=== PATIENT | male | born 1990 | race Caucasian/White ===

== ENCOUNTER 2016-10-29 05:54 | Emergency (ER) | payer OTHER ==
[~2016-10-29] VITALS: Ht 188 cm; Wt 65.8 kg
[~2016-10-29 05:54] MED LIST: ALPR0.5T6 PO; ASPI-612 PO
--- NOTE | 2016-10-29 06:19 | ED.ADGEN ---
Past History Past Medical History: Other Past Surgical History: Other Alcohol Use: None Drug Use: Marijuana Adult General Chief Complaint Chief Complaint Chest tightness, shortness of breath, anxiety [facility] HPI Patient is a 26 year old male with history of anxiety, cardiac arrhythmia requiring AICD basement presents who presents with chest tightness, mild dyspnea , anxiety and worry for the past 24 hours. Patient states he's concerned that his AICD discharge, but he denies feeling any sudden chest pain or electrical discharges. Symptoms are non-exertional and are worse at night. He has not had palpitations or syncope. Patient states he has had similar episodes in the past and has been treated with anxiety, but is currently off anxiety medication that is been treating himself with marijuana. He has an AICD implanted at [facility] in July 2016, which was confirmed to be properly functioning earlier this month. He is scheduled for a cardiac biopsy in the next 3 weeks. He currently on a beta zach for which he has poor for tolerance. She denies any other symptoms or complaints. Review of Systems Review of Systems ROS as per HPI Current Medications Current Medications Current Medications Medications (Trade) Dose Ordered Sig/Rick Start Time Stop Time Status Last Admin Dose Admin Lorazepam (Ativan) 0.5 mg 1X ONCE 10/29/16 06:30 10/29/16 06:32 DC 10/29/16 06:45 0.5 MG Allergies Allergies Allergies Coded Allergies Type Severity Reaction Last Updated Verified No Known Drug Allergies 04/07/16 No Physical Exam Physical Exam Constitutional: Well developed, well nourished, no acute distress, anxious. HEENT: atraumatic, bilateral external ears normal, oropharynx moist, no oral exudates, nose normal. Eyes: PERRLA, EOMI. Neck: Normal range of motion, no tenderness, supple. Cardiovascular:Heart rate regular rhythm, no murmur. Lungs & Thorax: Bilateral breath sounds clear to auscultation. Abdomen: Bowel sounds normal, soft, no tenderness. Skin: Warm, dry. Back: No tenderness. Extremities: No tenderness. Neurologic: Alert and oriented X 3, normal motor function, normal sensory function, no focal deficits noted. Current Patient Data Vital Signs Vital Signs Date Time Temp Pulse Resp B/P (MAP) Pulse Ox O2 Delivery O2 Flow Rate FiO2 10/29/16 06:00 98.0 18 96 Room Air Lab Results Laboratory Tests Test 10/29/16 06:20 White Blood Count 6.6 x10^3/uL (4.0-11.0) Red Blood Count 4.89 x10^6/uL (4.30-5.70) Hemoglobin 14.5 g/dL (13.0-17.5) Hematocrit 41.4 % (39.0-53.0) Mean Corpuscular Volume 85 fL (79-100) Mean Corpuscular Hemoglobin 30 pg (25-35) Mean Corpuscular Hemoglobin Concent 35 g/dL (31-37) Red Cell Distribution Width 13.0 % (11.5-14.5) Platelet Count 181 x10^3/uL (140-400) Neutrophils (%) (Auto) 66 % (31-73) Lymphocytes (%) (Auto) 22 % (24-48) L Monocytes (%) (Auto) 6 % (0-9) Eosinophils (%) (Auto) 5 % (0-3) H Basophils (%) (Auto) 0 % (0-3) Neutrophils # (Auto) 4.4 x10^3uL (1.8-7.7) Lymphocytes # (Auto) 1.5 x10^3/uL (1.0-4.8) Monocytes # (Auto) 0.4 x10^3/uL (0.0-1.1) Eosinophils # (Auto) 0.3 x10^3/uL (0.0-0.7) Basophils # (Auto) 0.0 x10^3/uL (0.0-0.2) Sodium Level 140 mmol/L (136-145) Potassium Level 4.2 mmol/L (3.5-5.1) Chloride Level 106 mmol/L (98-107) Carbon Dioxide Level 27 mmol/L (21-32) Anion Gap 7 (6-14) Blood Urea Nitrogen 10 mg/dL (8-26) Creatinine 0.8 mg/dL (0.7-1.3) Estimated GFR (Cockcroft-Gault) 116.9 BUN/Creatinine Ratio 13 (6-20) Glucose Level 108 mg/dL (70-99) H Calcium Level 9.0 mg/dL (8.5-10.1) Total Bilirubin 0.3 mg/dL (0.2-1.0) Aspartate Amino Transferase (AST) 14 U/L (15-37) L Alanine Aminotransferase (ALT) 17 U/L (16-63) Alkaline Phosphatase 85 U/L (46-116) Total Protein 7.4 g/dL (6.4-8.2) Albumin 3.7 g/dL (3.4-5.0) Albumin/Globulin Ratio 1.0 (1.0-1.7) EKG EKG [EKG: Normal sinus rhythm, abnormal V1 and V2 St contour] Radiology/Procedures Radiology/Procedures [Chest x-ray: No acute cardiopulmonary disease per radiology report] Course & Med Decision Making Course & Med Decision Making Pertinent Labs and Imaging studies reviewed. (See chart for details) [Clinically anxious. Does not report AICD discharge. Basic laboratories, EKG, chest x-ray pain. AICD interrogated. Case reviewed with Gus Rice, professional bass fisherman for patient's operating room rn. Recommend discharge home today and office follow up within 24-48 hours Final Impression Final Impression [1. Chest tightness 2. Dyspnea Problems: Dragon Disclaimer Dragon Disclaimer This electronic medical record was generated, in whole or in part, using a voice recognition dictation system. ROSY SANCHEZ DO October 29, 2016 06:19
[2016-10-29] MEDS ORDERED: LORazepam 2 MG/ML VIAL IV ONE (06:30)
[2016-10-29 06:38] LABS: BASO % 0 % (0-3); EOS # 0.3 x10^3/uL (0.0-0.7); EOS % 5 % (0-3); HEMATOCRIT 41.4 % (39.0-53.0); HEMOGLOBIN 14.5 g/dL (13.0-17.5); LYMPH # 1.5 x10^3/uL (1.0-4.8); LYMPH % 22 % (24-48); MEAN CORPUSCULAR HEMOGLOBIN 30 pg (25-35); MEAN CORPUSCULAR HGB CONC 35 g/dL (31-37); MEAN CORPUSCULAR VOLUME 85 fL (79-100); MONO # 0.4 x10^3/uL (0.0-1.1); MONO % 6 % (0-9); NEUT # 4.4 x10^3uL (1.8-7.7); NEUT % 66 % (31-73); PLATELET COUNT 181 x10^3/uL (140-400); RED BLOOD COUNT 4.89 x10^6/uL (4.30-5.70); WHITE BLOOD COUNT 6.6 x10^3/uL (4.0-11.0)
[2016-10-29 06:49] LABS: ALBUMIN 3.7 g/dL (3.4-5.0); CREATININE 0.8 mg/dL (0.7-1.3); GFR 116.9; POTASSIUM 4.2 mmol/L (3.5-5.1); TOTAL BILIRUBIN 0.3 mg/dL (0.2-1.0); TOTAL PROTEIN 7.4 g/dL (6.4-8.2)
--- NOTE | 2016-10-29 07:15 | RAD ---
AP chest, 10/29/2016: History: Chest pain Comparison is made to a study from 04/07/2016. A right-sided transvenous pacing device has been placed in the interval with a single lead extending into the region of the right ventricle. The heart size and pulmonary vascularity are normal. No pulmonary infiltrates are seen. There is no evidence of pleural fluid IMPRESSION: No acute cardiopulmonary abnormality is detected.
[2016-10-29 09:29] VITALS: BP 117/77
--- NOTE | 2016-10-29 12:49 | EKG ---
[address] [address] Test Date: 2016-10-29 Test Time: 06:03:18 Pat Name: JAMIA GUTIERREZ Department: Room: Gender: M Comfort Filler: : 1990 Requested By: ROSY SANCHEZ Order Number: [id number] Reading MD: Berhane Abraham Measurements Intervals Bly Rate: 62 P: 8 RI: 186 QRS: 66 QRSD: 84 T: 52 QT: 384 QTc: 392 Interpretive Statements SINUS RHYTHM Electronically Signed On 11-03-2016 13:58:16 CDT by Berhane Abraham
== END 2016-10-29 09:48 | disposition home or self-care (01) ==
LOC: ER 05:54
DX: R07.89 Other chest pain (principal); R06.00 Dyspnea, unspecified; F12.10 Cannabis abuse, uncomplicated; Z95.810 Presence of automatic (implantable) cardiac defibrillator
CPT/HCPCS: 36415; 71010; 80053; 84484; 85027; 93005; 96374; 99285; J2060

== ENCOUNTER 2016-11-12 20:09 | Emergency (ER) | payer OTHER ==
[~2016-11-12] VITALS: Ht 188 cm; Wt 69.0 kg
[2016-11-12] MEDS ORDERED: LIDOCAINE/EPI/TETRACAINE TOPICAL GEL 3 ML. TP ONE ×2 (20:17→20:30)
[2016-11-12] MEDS ORDERED: IBUPROFEN 600 MG TABLET. PO ONE ×2 (20:29→20:45)
[2016-11-12] MEDS ORDERED: ACETAMINOPHEN 500 MG TABLET PO ONE (20:30)
[2016-11-12] MEDS ORDERED: ONDANSETRON ODT 4 MG TAB.RAPDIS PO ONE (20:30)
--- NOTE | 2016-11-12 20:32 | ED.ADGEN ---
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 Patient states that he was chasing his dog at home, when he ran into the low hanging ceiling under his stairs. He states this occurred about 30 minutes prior to arrival. No loss of consciousness, he states he is experiencing a headache and mild nausea at this time. Denies any vision changes , any weakness, numbness, tingling, vomiting, chest pain, shortness of breath or other injuries. Patient place pressure on the scalp immediately, and is currently hemostatic. Patient takes a daily aspirin, no other anticoagulants. Review of Systems Review of Systems Constitutional: Denies fever or chills [] Eyes: Denies change in visual acuity, redness, or eye pain [] HENT: Denies nasal congestion or sore throat [] Respiratory: Denies cough or shortness of breath [] Cardiovascular: No additional information not addressed in HPI [] GI: Denies abdominal pain, nausea, vomiting, bloody stools or diarrhea [] : Denies dysuria or hematuria [] Musculoskeletal: Denies back pain or joint pain [] Integument: Denies rash or skin lesions [] Neurologic: Denies focal weakness or sensory changes. Complaining of headache and pain at site of injury. Endocrine: Denies polyuria or polydipsia [] Current Medications Current Medications Current Medications Medications (Trade) Dose Ordered Sig/[facility] Start Time Stop Time Status Last Admin Dose Admin Acetaminophen (Tylenol) 1,000 mg 1X ONCE 11/12/16 20:30 11/12/16 20:30 DC Ibuprofen (Motrin) 600 mg STK-MED ONCE 11/12/16 20:29 11/12/16 20:30 DC Lidocaine/ Epinephrine (Let Topical) 3 ml 1X ONCE 11/12/16 20:30 11/12/16 20:31 DC 11/12/16 20:28 3 ML Ondansetron HCl (Zofran Odt) 4 mg 1X ONCE 11/12/16 20:30 11/12/16 20:31 DC 11/12/16 20:28 4 MG Allergies Allergies Allergies Coded Allergies Type Severity Reaction Last Updated Verified No Known Drug Allergies 04/07/16 No Physical Exam Physical Exam Constitutional: Well developed, well nourished, no acute distress, non-toxic appearance. [] HENT: Normocephalic, patient with a 2 and half centimeter laceration, currently adhesed in place with dried blood, no hemotympanum, no septal hematoma, bilateral external ears normal, oropharynx moist, no oral exudates, nose normal. [] Eyes: PERRLA, EOMI, conjunctiva normal, no discharge. [] Neck: Normal range of motion, no tenderness, supple, no stridor. [] Cardiovascular:Heart rate regular rhythm, no murmur, S1, S2, rubs or gallops. [] Lungs & Thorax: Bilateral breath sounds clear to auscultation, no wheezing, rhonchi, rales. No chest or crepitus or tenderness. [] Abdomen: Bowel sounds normal, soft, no tenderness, no masses, no pulsatile masses. [] Skin: Warm, dry, no erythema, no rash. [] Back: No tenderness, no CVA tenderness. [] Extremities: No tenderness, no cyanosis, no clubbing, ROM intact, no edema. [] Neurologic: Alert and oriented X 3, normal motor function, normal sensory function, no focal deficits noted. No nystagmus, normal neurologic examination. [] Psychologic: Affect normal, judgement normal, mood normal. [] Current Patient Data Vital Signs Vital Signs Date Time Temp Pulse Resp B/P (MAP) Pulse Ox O2 Delivery O2 Flow Rate FiO2 11/12/16 20:40 70 16 115/82 (93) 99 Room Air 11/12/16 20:10 98.3 EKG EKG Not indicated. [] Radiology/Procedures Radiology/Procedures Not indicated. [] Course & Med Decision Making Course & Med Decision Making Pertinent Labs and Imaging studies reviewed. (See chart for details) Patient is a 2 and half centimeters slightly gaping linear laceration in the right scalp above the forehead, within the hairline. Area is hemostatic after pressure, copiously irrigated as stated, after let gel was applied, 2 alvin placed with good approximation and closure. Patient tolerated procedure well as stated. Antibiotic ointment was applied to the area. Patient received ibuprofen and Zofran in the ED, is complaining of mild nausea and headache. Neurologic examination was normal as stated, patient does take a daily aspirin. No indications for imaging at this time or additional evaluation based on patient' s examination and our conversation. We did discuss concerning symptoms that prompt return to the emergency department with patient and at bedside, patient states that he would like to go to work today, states he feels well enough, he performs skilled nursing duties, and a work note was given explaining his injury. Instructed to follow-up in 8-10 days for staple removal, and to return any time if any concerning symptoms develop. Patient and voiced understanding and agreement with this plan. Patient discharged home in stable condition with instructions, precautions, and plan as above. Final Impression Final Impression [] Problems: Dragon Disclaimer Dragon Disclaimer This electronic medical record was generated, in whole or in part, using a voice recognition dictation system. Laceration Repair Lac Repair Indication: 2 and half centimeter linear superficial slightly gaping laceration to the right scalp Procedure: The patient was placed in the appropriate position and anesthesia around the right scalp laceration was applied with LET gel. The area was then copiously irrigated with sterile saline under pressure. The laceration was approximated and closed using 2 alvin. Area was hemostatic. No underlying hematoma. The wound area was then dressed with antibiotic ointment and left open to air. Total repaired wound length: [2 and half centimeters Other Items: [None The patient tolerated the procedure [well. Complications: None. Departure: Impression: Primary Impression: Scalp laceration Additional Impression: Closed head injury Disposition: HOME, SELF-CARE Condition: IMPROVED ARLETTE MENDIOLA DO November 12, 2016 20:32
[2016-11-12 20:40] VITALS: BP 115/82
== END 2016-11-12 21:17 | disposition home or self-care (01) ==
LOC: ER 20:09
DX: S01.01XA Laceration without foreign body of scalp, initial encounter (principal); S09.8XXA Other specified injuries of head, initial encounter; F12.10 Cannabis abuse, uncomplicated; Z95.0 Presence of cardiac pacemaker; W22.8XXA Striking against or struck by other objects, initial encounter; Y93.02 Activity, running; Y99.8 Other external cause status; Y92.89 Other specified places as the place of occurrence of the external cause
CPT/HCPCS: 12001; 99283; Q0162

== ENCOUNTER 2016-11-24 15:40 | Emergency (ER) | payer OTHER ==
[2016-11-24 15:40] VITALS: BP 115/71
--- NOTE | 2016-11-24 16:10 | ED.ADGEN ---
Past History Past Medical History: Other Past Surgical History: Pacemaker Alcohol Use: Occasionally Drug Use: Marijuana Adult General Chief Complaint Chief Complaint Staple removal HPI HPI Patient is a 26-year-old male presents for removal on 11/12. No complications. Review of Systems Review of Systems ROS are negative Allergies Allergies Allergies Coded Allergies Type Severity Reaction Last Updated Verified No Known Drug Allergies 04/07/16 No Physical Exam Physical Exam Constitutional: Well developed, well nourished, no acute distress, non-toxic appearance. HENT: Normocephalic, atraumatic, scalp wound, alvin intact, no infection or swelling, bilateral external ears normal, oropharynx moist, no oral exudates, nose normal. Current Patient Data Vital Signs Vital Signs Date Time Temp Pulse Resp B/P (MAP) Pulse Ox O2 Delivery O2 Flow Rate FiO2 11/24/16 15:40 97.9 73 20 98 Room Air EKG EKG [] Radiology/Procedures Radiology/Procedures [] Course & Med Decision Making Course & Med Decision Making Pertinent Labs and Imaging studies reviewed. (See chart for details) Alvin removed] Final Impression Final Impression [1. Encounter for staple removal] Problems: Dragon Disclaimer Dragon Disclaimer This electronic medical record was generated, in whole or in part, using a voice recognition dictation system. ROSY SANCHEZ DO Nov 24, 2016 16:10
== END 2016-11-24 15:55 | disposition home or self-care (01) ==
LOC: ER 15:40
DX: S01.01XD Laceration without foreign body of scalp, subsequent encounter (principal); F12.10 Cannabis abuse, uncomplicated; X58.XXXD Exposure to other specified factors, subsequent encounter; Y99.8 Other external cause status; Y92.89 Other specified places as the place of occurrence of the external cause
CPT/HCPCS: 99281

== ENCOUNTER 2017-06-09 12:17 | Emergency (ER) | payer OTHER ==
[2017-06-09 12:42] LABS: BASO % 0 % (0-3); EOS % 0 % (0-3); HEMATOCRIT 48.5 % (39.0-53.0); HEMOGLOBIN 16.8 g/dL (13.0-17.5); LYMPH # 0.6 x10^3/uL (1.0-4.8); LYMPH % 4 % (24-48); MEAN CORPUSCULAR HEMOGLOBIN 29 pg (25-35); MEAN CORPUSCULAR HGB CONC 35 g/dL (31-37); MEAN CORPUSCULAR VOLUME 84 fL (79-100); MONO # 0.5 x10^3/uL (0.0-1.1); MONO % 3 % (0-9); NEUT # 13.9 x10^3uL (1.8-7.7); NEUT % 92 % (31-73); PLATELET COUNT 186 x10^3/uL (140-400); RED BLOOD COUNT 5.79 x10^6/uL (4.30-5.70); RED CELL DISTRIBUTION WIDTH 12.3 % (11.5-14.5); WHITE BLOOD COUNT 15.1 x10^3/uL (4.0-11.0)
[2017-06-09] MEDS ORDERED: IV NORMAL SALINE 1,000ML 1,000 ML IV ONE (12:45)
[2017-06-09] MEDS ORDERED: ONDANSETRON PF 4 MG/2 ML VIAL. IV ONE (12:45)
[2017-06-09] MEDS ORDERED: FAMOTIDINE 20 MG/2 ML VIAL IVP ONE (12:45)
[2017-06-09 12:59] LABS: ALBUMIN/GLOBULIN RATIO 1.4 (1.0-1.7); CALCIUM 9.8 mg/dL (8.5-10.1); GFR 89.6; POTASSIUM 4.6 mmol/L (3.5-5.1); TOTAL BILIRUBIN 0.5 mg/dL (0.2-1.0); TOTAL PROTEIN 8.6 g/dL (6.4-8.2)
[2017-06-09 13:45] LABS: % BANDS 2 % (0-9); % LYMPHS 10 % (24-48); % MONOS 4 % (0-10); % SEGS 84 % (35-66); PLATELET CLUMP PRESENT; PLT ESTIMATE ADEQUATE (ADEQUATE)
[2017-06-09 14:25] VITALS: BP 117/58
--- NOTE | 2017-06-09 17:58 | ED.ADGEN ---
Past History Past Medical History: Other Past Surgical History: Pacemaker Alcohol Use: Occasionally Drug Use: Marijuana Adult General Chief Complaint Chief Complaint Nausea and vomiting HPI HPI Patient is a [age] [id number] male with history of cardiomyopathy and malignant arrhythmia with AICD placement who presents with nausea and vomiting multiple episodes starting yesterday. Patient states he is exposed to GI illness with his daughter vomited on him 2 days ago. Reports mild epigastric pain, no blood in stool or vomit. No diarrhea or constipation. Patient has fever chills, sweats, flank pain,, urinary frequency and urgency other acute symptoms or complaints.[] Review of Systems Review of Systems Review symptoms as per history of present illness. All other review symptoms are negative.] All other systems were reviewed and found to be within normal limits, except as documented in this note. Current Medications Current Medications Current Medications Medications (Trade) Dose Ordered Sig/[facility] Start Time Stop Time Status Last Admin Dose Admin Famotidine (Pepcid Vial) 20 mg 1X ONCE 06/09/17 12:45 06/09/17 12:46 DC 06/09/17 12:48 20 MG Ondansetron HCl (Zofran) 8 mg 1X ONCE 06/09/17 12:45 06/09/17 12:46 DC 06/09/17 12:46 8 MG Sodium Chloride 1,000 ml @ 1,000 mls/hr 1X ONCE 06/09/17 12:45 06/09/17 13:44 DC 06/09/17 12:45 1,000 MLS/HR Allergies Allergies Allergies Coded Allergies Type Severity Reaction Last Updated Verified No Known Drug Allergies 04/07/16 No Physical Exam Physical Exam Constitutional: Well developed, well nourished, no acute distress, non-toxic appearance. [] HENT: Normocephalic, atraumatic, bilateral external ears normal, oropharynx moist, no oral exudates, nose normal. [] Eyes: PERRLA, EOMI, conjunctiva normal, no discharge. [] Neck: Normal range of motion, no tenderness, supple, no stridor. [] Cardiovascular:Heart rate regular rhythm, no murmur [] Lungs & Thorax: Bilateral breath sounds clear to auscultation [] Abdomen: Bowel sounds normal, soft, no tenderness, no masses, no pulsatile masses. [] Skin: Warm, dry, no erythema, no rash. [] Back: No tenderness, no CVA tenderness. [] Extremities: No tenderness, no cyanosis, no clubbing, ROM intact, no edema. [] Neurologic: Alert and oriented X 3, normal motor function, normal sensory function, no focal deficits noted. [] Psychologic: Affect normal, judgement normal, mood normal. [] Current Patient Data Lab Results Laboratory Tests Test 06/09/17 12:34 White Blood Count 15.1 x10^3/uL (4.0-11.0) H Red Blood Count 5.79 x10^6/uL (4.30-5.70) H Hemoglobin 16.8 g/dL (13.0-17.5) Hematocrit 48.5 % (39.0-53.0) Mean Corpuscular Volume 84 fL (79-100) Mean Corpuscular Hemoglobin 29 pg (25-35) Mean Corpuscular Hemoglobin Concent 35 g/dL (31-37) Red Cell Distribution Width 12.3 % (11.5-14.5) Platelet Count 186 x10^3/uL (140-400) Neutrophils (%) (Auto) 92 % (31-73) H Lymphocytes (%) (Auto) 4 % (24-48) L Monocytes (%) (Auto) 3 % (0-9) Eosinophils (%) (Auto) 0 % (0-3) Basophils (%) (Auto) 0 % (0-3) Neutrophils # (Auto) 13.9 x10^3uL (1.8-7.7) H Lymphocytes # (Auto) 0.6 x10^3/uL (1.0-4.8) L Monocytes # (Auto) 0.5 x10^3/uL (0.0-1.1) Eosinophils # (Auto) 0.0 x10^3/uL (0.0-0.7) Basophils # (Auto) 0.0 x10^3/uL (0.0-0.2) Segmented Neutrophils % 84 % (35-66) H Band Neutrophils % 2 % (0-9) Lymphocytes % 10 % (24-48) L Monocytes % 4 % (0-10) Platelet Estimate Adequate (ADEQUATE) Platelet Clumps, EDTA Present Sodium Level 140 mmol/L (136-145) Potassium Level 4.6 mmol/L (3.5-5.1) Chloride Level 104 mmol/L (98-107) Carbon Dioxide Level 27 mmol/L (21-32) Anion Gap 9 (6-14) Blood Urea Nitrogen 15 mg/dL (8-26) Creatinine 1.0 mg/dL (0.7-1.3) Estimated GFR (Cockcroft-Gault) 89.6 BUN/Creatinine Ratio 15 (6-20) Glucose Level 136 mg/dL (70-99) H Calcium Level 9.8 mg/dL (8.5-10.1) Total Bilirubin 0.5 mg/dL (0.2-1.0) Aspartate Amino Transferase (AST) 16 U/L (15-37) Alanine Aminotransferase (ALT) 23 U/L (16-63) Alkaline Phosphatase 77 U/L (46-116) Total Protein 8.6 g/dL (6.4-8.2) H Albumin 5.0 g/dL (3.4-5.0) Albumin/Globulin Ratio 1.4 (1.0-1.7) EKG EKG [] Radiology/Procedures Radiology/Procedures [] Course & Med Decision Making Course & Med Decision Making Pertinent Labs and Imaging studies reviewed. (See chart for details) [1 episode of vomiting prior on ED arrival. Symptoms significantly improved with treatment. Abdomen remained soft, nonsurgical. Patient's elevation white blood cell count is consistent with [place] GI illness prevalent in the community. Wi'll treat supportively, with supportively with watchful waiting and close PCP follow-up. Return precautions reviewed. Patient verbalizes understanding agreement with discharge instructions prior to departure.] Final Impression Final Impression [#1 nausea and vomiting #2 abdominal pain] Problems: Dragon Disclaimer Dragon Disclaimer This electronic medical record was generated, in whole or in part, using a voice recognition dictation system. ROSY SACNHEZ DO Jun 09, 2017 17:58
== END 2017-06-09 14:40 | disposition home or self-care (01) ==
LOC: ER 12:17
DX: R11.2 Nausea with vomiting, unspecified (principal); R10.13 Epigastric pain; F12.10 Cannabis abuse, uncomplicated; I42.9 Cardiomyopathy, unspecified; Z95.0 Presence of cardiac pacemaker
CPT/HCPCS: 36415; 80053; 85025; 96361; 96374; 96375; 99284; J2405; S0028; 85007; J7030

== ENCOUNTER 2017-10-28 12:16 | Emergency (ER) | payer OTHER ==
[~2017-10-28] VITALS: Ht 188 cm; Wt 69.0 kg
[2017-10-28 12:34] VITALS: BP 117/73
[2017-10-28 13:15] LABS: BASO % 1 % (0-3); EOS # 0.1 x10^3/uL (0.0-0.7); EOS % 2 % (0-3); HEMATOCRIT 40.2 % (39.0-53.0); HEMOGLOBIN 14.3 g/dL (13.0-17.5); LYMPH # 2.4 x10^3/uL (1.0-4.8); LYMPH % 35 % (24-48); MEAN CORPUSCULAR HEMOGLOBIN 31 pg (25-35); MEAN CORPUSCULAR HGB CONC 36 g/dL (31-37); MEAN CORPUSCULAR VOLUME 86 fL (79-100); MONO # 0.4 x10^3/uL (0.0-1.1); MONO % 6 % (0-9); NEUT # 3.8 x10^3uL (1.8-7.7); NEUT % 57 % (31-73); PLATELET COUNT 201 x10^3/uL (140-400); RED BLOOD COUNT 4.68 x10^6/uL (4.30-5.70); RED CELL DISTRIBUTION WIDTH 13.4 % (11.5-14.5); WHITE BLOOD COUNT 6.7 x10^3/uL (4.0-11.0)
[2017-10-28 13:26] LABS: ALBUMIN 4.1 g/dL (3.4-5.0); ALBUMIN/GLOBULIN RATIO 1.4 (1.0-1.7); CALCIUM 9.4 mg/dL (8.5-10.1); CREATININE 0.9 mg/dL (0.7-1.3); GFR 101.2; POTASSIUM 3.9 mmol/L (3.5-5.1); TOTAL BILIRUBIN 0.4 mg/dL (0.2-1.0)
[2017-10-28 13:39] LABS: BACTERIA,URINE FEW /HPF (0-FEW); BILIRUBIN,URINE NEG (NEG); CLARITY,URINE CLOUDY; COLOR,URINE YELLOW; GLUCOSE,URINE NEG (NEG); NITRITE,URINE NEG (NEG); SQUAMOUS EPITHELIAL CELL,UR OCC /LPF; UROBILINOGEN,URINE 0.2 mg/dL (0.2 mg/dL)
[2017-10-28 13:40] LABS: AMORPHOUS SEDIMENT,UR PRESENT /HPF; HYALINE CASTS, URINE OCC /HPF
[2017-10-28] MEDS ORDERED: HYDROcodone/APAP 5/325MG 1 TAB TABLET PO ONE (14:15)
--- NOTE | 2017-10-28 14:22 | RAD ---
CT ABDOMEN PELVIS WO CONTRAST Indication: BILATERAL FLANK/KIDNEY PAIN ONSET YESTERDAY Exposure: One or more of the following individualized dose reduction techniques were utilized for this examination: 1. Automated exposure control 2. Adjustment of the mA and/or kV according to patient size 3. Use of iterative reconstruction technique. Comparison: None are available. Contrast: None Urinary tracts: No evidence of urinary tract calculus. No evidence of hydronephrosis or ureteric dilatation. Evaluation of solid viscera, bowel and vasculature is compromised by the noncontrast technique. Lower thorax: Lung bases are clear. Pneumoperitoneum:No gross pneumoperitoneum. Liver: Unremarkable Spleen: Unremarkable Pancreas: Unremarkable Kidneys:Unremarkable Adrenals:No evidence of mass. Gallbladder: No calcified stone Aorta: Abdominal aorta is nonaneurysmal Lymph nodes: No significant enlargement GI tract: No bowel obstruction. No evidence of acute colitis. The appendix is normal. Ascites: No gross ascites. Urinary bladder: Not opacified, but no apparent abnormality. No evidence of pelvic mass. Bones: No destructive process. IMPRESSION: No acute findings. No urinary tract calculus or obstruction. Electronically signed by: Sin Taylor MD (10/28/2017 2:19 PM) [facility]
--- NOTE | 2017-10-28 14:30 | PHYS DOC ---
Past History Past Medical History: No Pertinent History Past Surgical History: No Surgical History Alcohol Use: None Drug Use: Marijuana Adult General Chief Complaint Chief Complaint: URINARY RETENTION HPI HPI This is a pleasant 27-year-old male with a past medical history of sarcoidosis and myocarditis who presents the emergency department with urinary retention after beginning Remicade therapy. He reports straining to be at night. He denies any fevers at home or chills. He denies pain on urination. He reports his urine color is within normal limits at denies any clots of blood in his urine. He has bilateral flank pain as well. His pain in his flank is sharp shooting mild to moderate intermittent and without alleviating factors. Review of systems is negative for chest pain shortness of breath fevers or chills. All other review of systems is negative unless otherwise noted in history of present illness. ED course: 77-year-old male presenting to the emergency department today with bilateral flank pain. On arrival the patient is afebrile with a normal blood pressure. Heart rate was within normal limits. Examination the patient is well- appearing and nontoxic. He has mild left and right CVA tenderness without any abdominal pain on palpation. No tenderness palpation of the abdomen. No rebound tenderness or guarding. Negative McBurney's point. Negative Catalan sign. Urinalysis obtained which shows trace blood negative nitrites negative leuk esterase. Not suggestive of urinary tract infection. Chemistry panel unremarkable. Postvoid residual shows [address] abdomen pelvis is unremarkable for acute pathology. We will refer the patient back to his primary care physician for follow-up in the next few days.The patient has been examined and was not found to have an emergency medical condition. The patient was then discharged home in stable condition to follow up with their primary care physician over the next 2-3 days. They were to return if their symptoms worsened or if they were concerned for any reason. [id number] discharge instructions and return precautions were given. Patient's questions were answered to their satisfaction. Patient is comfortable with plan. Review of Systems Review of Systems SEE ABOVE. Current Medications Current Medications Current Medications Medications (Trade) Dose Ordered Sig/Rick Start Time Stop Time Status Last Admin Dose Admin Acetaminophen/ Hydrocodone Bitart (Lortab 5/325) 2 tab 1X ONCE 10/28/17 14:15 10/28/17 14:16 DC 10/28/17 14:03 2 TAB Allergies Allergies Allergies Coded Allergies Type Severity Reaction Last Updated Verified No Known Drug Allergies 04/07/16 No Physical Exam Physical Exam SEE ABOVE Constitutional: Well developed, well nourished, no acute distress, non-toxic appearance. [] HENT: Normocephalic, atraumatic, bilateral external ears normal, oropharynx moist, no oral exudates, nose normal. [] Eyes: PERRLA, EOMI, conjunctiva normal, no discharge. [] Neck: Normal range of motion, no tenderness, supple, no stridor. [] Cardiovascular:Heart rate regular rhythm, no murmur [] Lungs & Thorax: Bilateral breath sounds clear to auscultation [] Abdomen: Bowel sounds normal, soft, no tenderness, no masses, no pulsatile masses. [] Skin: Warm, dry, no erythema, no rash. [] Back: No tenderness, mild bilateral cva tenderness. Extremities: No tenderness, no cyanosis, no clubbing, ROM intact, no edema. [] Neurologic: Alert and oriented X 3, normal motor function, normal sensory function, no focal deficits noted. [] Psychologic: Affect normal, judgement normal, mood normal. [] Current Patient Data Vital Signs Vital Signs Date Time Temp Pulse Resp B/P (MAP) Pulse Ox O2 Delivery O2 Flow Rate FiO2 10/28/17 14:03 16 99 Room Air 10/28/17 12:34 97.5 80 Lab Results Laboratory Tests Test 10/28/17 12:53 10/28/17 13:05 White Blood Count 6.7 x10^3/uL (4.0-11.0) Red Blood Count 4.68 x10^6/uL (4.30-5.70) Hemoglobin 14.3 g/dL (13.0-17.5) Hematocrit 40.2 % (39.0-53.0) Mean Corpuscular Volume 86 fL (79-100) Mean Corpuscular Hemoglobin 31 pg (25-35) Mean Corpuscular Hemoglobin Concent 36 g/dL (31-37) Red Cell Distribution Width 13.4 % (11.5-14.5) Platelet Count 201 x10^3/uL (140-400) Neutrophils (%) (Auto) 57 % (31-73) Lymphocytes (%) (Auto) 35 % (24-48) Monocytes (%) (Auto) 6 % (0-9) Eosinophils (%) (Auto) 2 % (0-3) Basophils (%) (Auto) 1 % (0-3) Neutrophils # (Auto) 3.8 x10^3uL (1.8-7.7) Lymphocytes # (Auto) 2.4 x10^3/uL (1.0-4.8) Monocytes # (Auto) 0.4 x10^3/uL (0.0-1.1) Eosinophils # (Auto) 0.1 x10^3/uL (0.0-0.7) Basophils # (Auto) 0.0 x10^3/uL (0.0-0.2) Sodium Level 142 mmol/L (136-145) Potassium Level 3.9 mmol/L (3.5-5.1) Chloride Level 104 mmol/L (98-107) Carbon Dioxide Level 28 mmol/L (21-32) Anion Gap 10 (6-14) Blood Urea Nitrogen 14 mg/dL (8-26) Creatinine 0.9 mg/dL (0.7-1.3) Estimated GFR (Cockcroft-Gault) 101.2 BUN/Creatinine Ratio 16 (6-20) Glucose Level 106 mg/dL (70-99) H Calcium Level 9.4 mg/dL (8.5-10.1) Total Bilirubin 0.4 mg/dL (0.2-1.0) Aspartate Amino Transferase (AST) 16 U/L (15-37) Alanine Aminotransferase (ALT) 23 U/L (16-63) Alkaline Phosphatase 51 U/L (46-116) Total Protein 7.0 g/dL (6.4-8.2) Albumin 4.1 g/dL (3.4-5.0) Albumin/Globulin Ratio 1.4 (1.0-1.7) Urine Collection Type Unknown Urine Color Yellow Urine Clarity Cloudy Urine pH 7.0 Urine Specific [place] 1.025 Urine Protein Neg (NEG-TRACE) Urine Glucose (UA) Neg mg/dL (NEG) Urine Ketones (Stick) Neg mg/dL (NEG) Urine Blood Trace (NEG) Urine Nitrite Neg (NEG) Urine Bilirubin Neg (NEG) Urine Urobilinogen Dipstick 0.2 mg/dL (0.2 mg/dL) Urine Leukocyte Esterase Neg (NEG) Urine RBC 6-10 /HPF (0-2) Urine WBC 1-4 /HPF (0-4) Urine Squamous Epithelial Cells Occ /LPF Urine Amorphous Sediment Present /HPF Urine Bacteria Few /HPF (0-FEW) Urine Hyaline Casts Occ /HPF Urine Mucus Slight /LPF EKG EKG [] Radiology/Procedures Radiology/Procedures [] Course & Med Decision Making Course & Med Decision Making Pertinent Labs and Imaging studies reviewed. (See chart for details) [] Dragon Disclaimer Dragon Disclaimer This electronic medical record was generated, in whole or in part, using a voice recognition dictation system. Departure Departure: Impression: Primary Impression: Flank pain Additional Impression: Flank pain, acute Disposition: HOME, SELF-CARE Condition: STABLE Referrals: PCP,KILEY (PCP) LISETH GALINDO MD Patient Instructions: Flank Pain Additional Instructions: Thank you for allowing us to participate in your care today. Followup with your primary care physician in 3 days if your symptoms do not improve. Call your Primary Doctor tomorrow and inform them of your visit today. If you do not have a primary care provider you can ask for a list of our primary care providers. Return to the emergency department you have any new or concerning findings. This should be evaluated by the primary care physician and any necessary consulting services for continued management within a few days after discharge. Return to emergency room if you have any new or concerning symptoms including but not limited to fever, chills, nausea, vomiting, intractable pain, any new rashes, chest pain, shortness of air, uncontrolled bleeding, difficulty breathing, and/or vision loss. If at any time, you are having difficulty getting into your primary care doctor or a specialist, return to the emergency department. You may have been prescribed medication or given medication in the emergency department that can change in your level of thinking and ability to operate machinery. These medications include hydrocodone and Ativan. Also, Benadryl has been known to do this as well. Be sure to check with your pharmacist and ask if the medications you've prescribed can affect your level of consciousness. I recommend not operating heavy machinery or driving while on medication such as these. Scripts Hydrocodone Bit/Acetaminophen (HYDROCODONE-APAP 5-325 ) 1 Each Tablet 1 TAB PO PRN Q6HRS PRN for PAIN, #10 TAB 0 Refills Prov: KEREN LACY MD 10/28/17 Problem Qualifiers KEREN LACY MD October 28, 2017 14:30
[2017-10-28] MEDS ORDERED: HYDR-2758 PO (14:31)
== END 2017-10-28 14:45 | disposition home or self-care (01) ==
LOC: ER 12:16
DX: R10.9 Unspecified abdominal pain (principal); R33.9 Retention of urine, unspecified; F12.10 Cannabis abuse, uncomplicated
CPT/HCPCS: 36415; 74176; 80053; 81001; 85025; 99285-25

== ENCOUNTER 2018-05-25 08:07 | Emergency (ER) | payer OTHER ==
[~2018-05-25] VITALS: Ht 182.9 cm; Wt 70.3 kg
[~2018-05-25 08:07] MED LIST changes: +HYDR-2155 PO
[2018-05-25] MEDS ORDERED: KETOROLAC 30 MG/ML VIAL. IV ONE (08:30)
[2018-05-25 08:51] LABS: BASO % 0 % (0-3); EOS # 0.2 x10^3/uL (0.0-0.7); EOS % 4 % (0-3); HEMOGLOBIN 14.9 g/dL (13.0-17.5); LYMPH # 1.3 x10^3/uL (1.0-4.8); LYMPH % 29 % (24-48); MEAN CORPUSCULAR HEMOGLOBIN 30 pg (25-35); MEAN CORPUSCULAR HGB CONC 35 g/dL (31-37); MEAN CORPUSCULAR VOLUME 86 fL (79-100); MONO # 0.3 x10^3/uL (0.0-1.1); MONO % 7 % (0-9); NEUT # 2.6 x10^3uL (1.8-7.7); NEUT % 60 % (31-73); PLATELET COUNT 185 x10^3/uL (140-400); RED BLOOD COUNT 5.02 x10^6/uL (4.30-5.70); RED CELL DISTRIBUTION WIDTH 12.5 % (11.5-14.5); WHITE BLOOD COUNT 4.4 x10^3/uL (4.0-11.0)
--- NOTE | 2018-05-25 08:53 | PHYS DOC ---
Past History Past Medical History: Other (myocarditis and ARVD) Past Surgical History: No Surgical History Alcohol Use: None Drug Use: Marijuana Adult General Chief Complaint Chief Complaint: Right chest pain HPI HPI Patient is a 28 year old with history of myocarditis and ARVD who presents with complaining of right lower chest pain for 10 days. Patient complaining of left lower lateral chest pain as a constant and stabbing pain for the last 10 days and rated his pain 6/10. Patient states the pain getting worse with cough and sneezing and movement of his head the pain 10 over 10. Patient stated the pain radiated to upper right chest and associated with episode of palpitation and dizziness. Patient denies shortness of breath, fever, chills, cough, URI symptoms, chest injury. Patient did not take any pain medication for the last 10 days. Review of Systems Review of Systems Constitutional: Denies fever or chills [] Eyes: Denies change in visual acuity, redness, or eye pain [] HENT: Denies nasal congestion or sore throat [] Respiratory: Denies cough or shortness of breath [] Cardiovascular: No additional information not addressed in HPI [] GI: Denies abdominal pain, nausea, vomiting, bloody stools or diarrhea [] : Denies dysuria or hematuria [] Musculoskeletal: Denies back pain or joint pain [] Integument: Denies rash or skin lesions [] Neurologic: Denies headache, focal weakness or sensory changes [] Endocrine: Denies polyuria or polydipsia [] All other systems were reviewed and found to be within normal limits, except as documented in this note. Current Medications Current Medications Current Medications Medications (Trade) Dose Ordered Sig/[facility] Start Time Stop Time Status Last Admin Dose Admin Ketorolac Tromethamine (Toradol 30mg Vial) 30 mg 1X ONCE 05/25/18 08:30 05/25/18 08:33 DC 05/25/18 08:39 30 MG Allergies Allergies Allergies Coded Allergies Type Severity Reaction Last Updated Verified No Known Drug Allergies 04/07/16 No Physical Exam Physical Exam Constitutional: Well developed, well nourished, mild distress, non-toxic appearance. [] HENT: Normocephalic, atraumatic, oropharynx moist, no oral exudates, nose normal. [] Eyes: PERRLA, EOMI, conjunctiva normal, no discharge. [] Neck: Normal range of motion, no tenderness, supple, no stridor. [] Cardiovascular:Heart rate regular rhythm, no murmur [] Lungs & Thorax: Bilateral breath sounds clear to auscultation, right lower chest wall reproducible pain [] Abdomen: Bowel sounds normal, soft, no tenderness, no masses, no pulsatile masses. [] Skin: Warm, dry, no erythema, no rash. [] Back: No tenderness, no CVA tenderness. [] Extremities: No tenderness, no cyanosis, no clubbing, ROM intact, no edema. [] Neurologic: Alert and oriented X 3, normal motor function, normal sensory function, no focal deficits noted. [] Psychologic: Affect normal, judgement normal, mood normal. [] EKG EKG Interpreted by me. EKG has 0 821 showed normal sinus rhythm at rate of 70, normal interval and axis, no acute ST and T-wave abnormalities, no specific EKG abnormalities Radiology/Procedures Radiology/[place] [address] IMAGING REPORT Signed PATIENT: JAMIA GUTIERREZ ACCOUNT: [id number] : 1990 LOCATION: ER AGE: 28 SEX: M EXAM STATUS: REG ER ORD. PHYSICIAN: JULIANNA ELIZABETH MD REASON: chest pain PROCEDURE: CHEST PA & LATERAL CHEST PA LATERAL History: chest pain today on right side Comparison: AP chest October 29, 2016. Findings: Stable right chest single lead ICD. The cardiomediastinal silhouette is normal. Pulmonary vasculature is normal. The lungs are clear. No pleural effusion or pneumothorax is seen. There is no acute bone abnormality. IMPRESSION: No acute cardiopulmonary process. Electronically signed by: Rodney Fisher MD (05/25/2018 8:55 AM) [id number] DICTATED AND SIGNED BY: RODNEY FISHER MD DATE: 05/25/18 0853 CC: JULIANNA ELIZABETH MD; PCP,NO ~ Course & Med Decision Making Course & Med Decision Making Pertinent Labs and Imaging studies reviewed. (See chart for details) Evaluation of patient in ER showed 28-year-old male patient with history of myocarditis and ARVD and pacemaker placement presented with complaining of constant chest pain in right lower chest for 10 days and reproducible pain. Patient had unremarkable EKG and labs except for positive UA for marijuana. Patient had other ER visits with anxiety about his health and chest pain patient instructed to follow-up with his rotary cutter at [facility] prescription for Naprosyn was given with diagnosis of pleurisy. Dragon Disclaimer Dragon Disclaimer This electronic medical record was generated, in whole or in part, using a voice recognition dictation system. Departure Departure: Impression: Primary Impression: Pleurisy Additional Impressions: Anxiety about health History of cardiac pacemaker in situ History of myocarditis Arrhythmogenic right ventricular dysplas Disposition: HOME, SELF-CARE (at 0945) Condition: IMPROVED Referrals: PCP,KILEY (PCP) Patient Instructions: Pleurisy Additional Instructions: Follow-up with your rotary cutter in 1- 2 days Follow-up with your primary care physician in 3-5 days Return to ER if not getting better Scripts Naproxen (NAPROSYN) 500 Mg Tablet 500 MG PO BID for pain, #20 TAB Prov: JULIANNA ELIZABETH MD 05/25/18 Problem Qualifiers JULIANNA ELIZABETH MD May 25, 2018 08:52
--- NOTE | 2018-05-25 08:59 | RAD ---
CHEST PA LATERAL History: chest pain today on right side Comparison: AP chest October 29, 2016. Findings: Stable right chest single lead ICD. The cardiomediastinal silhouette is normal. Pulmonary vasculature is normal. The lungs are clear. No pleural effusion or pneumothorax is seen. There is no acute bone abnormality. IMPRESSION: No acute cardiopulmonary process. Electronically signed by: Rodney Santos MD (05/25/2018 8:55 AM) [id number]
[2018-05-25 09:06] LABS: ALBUMIN 4.4 g/dL (3.4-5.0); ALBUMIN/GLOBULIN RATIO 1.3 (1.0-1.7); CALCIUM 9.3 mg/dL (8.5-10.1); CREATININE 0.8 mg/dL (0.7-1.3); GFR 115.1; POTASSIUM 3.9 mmol/L (3.5-5.1); TOTAL BILIRUBIN 0.6 mg/dL (0.2-1.0); TOTAL PROTEIN 7.7 g/dL (6.4-8.2)
[2018-05-25 09:34] LABS: AMPHETAMINE/METHAMPHETAMINE NEG (NEG); BARBITURATES NEG (NEG); BENZODIAZEPINES NEG (NEG); CANNABINOIDS POS (NEG); COCAINE NEG (NEG); METHADONE NEG (NEG); OPIATES NEG (NEG); PHENCYCLIDINE NEG (NEG)
[2018-05-25] MEDS ORDERED: NAPR-683 PO (09:47)
[2018-05-25 10:05] VITALS: BP 120/76
--- NOTE | 2018-05-25 11:15 | EKG ---
[address] [address] Test Date: 2018-05-25 Test Time: 08:21:30 Pat Name: JAMIA GUTIERREZ Department: Room: Gender: M Seat Builder: : 1990 Requested By: JULIANNA ELIZABETH Order Number: [id number] Reading MD: Prakash Jordan Measurements Intervals [place] Rate: 70 P: 37 VA: 162 QRS: 73 QRSD: 84 T: 60 QT: 356 QTc: 387 Interpretive Statements SINUS RHYTHM Electronically Signed On 06-01-2018 9:56:28 [employer] by Prakash Jordan
== END 2018-05-25 10:08 | disposition home or self-care (01) ==
LOC: ER 08:07
DX: R09.1 Pleurisy (principal); F41.9 Anxiety disorder, unspecified; I42.8 Other cardiomyopathies; F12.10 Cannabis abuse, uncomplicated; Z95.0 Presence of cardiac pacemaker
CPT/HCPCS: 36415; 71046; 80053; 80307; 82550; 83690; 83735; 83880; 84484; 85025; 93005; 96374; 99284; J1885

== ENCOUNTER 2019-03-07 11:23 | Emergency (ER) | payer MEDICARE, OTHER ==
[~2019-03-07] VITALS: Ht 182.9 cm; Wt 79.4 kg
[~2019-03-07 11:23] MED LIST changes: +NAPR-683 PO; +NEOMY/BACITR/POLYMYXIN OINT PACKET. TP ONE
[2019-03-07] MEDS ORDERED: DIPHTH,PERTUSS(ACELL),TET TOX 0.5 ML DISP.SYRIN. VAX IM ONE (11:45)
--- NOTE | 2019-03-07 11:47 | PHYS DOC ---
Past History Past Medical History: Other Additional Past Medical Histor: myocarditis, anxiety, orthostasis Past Surgical History: Other Alcohol Use: None Drug Use: None Adult General Chief Complaint Chief Complaint: FINGER INJURY HPI HPI Patient is a 29-year-old male, right-handed, who presents to the emergency department for evaluation. He states he was working on crafts at home, and his hobby knife slipped,, causing a laceration on the dorsal aspect of his left index finger. His last tetanus was greater than 5 years ago. He denies any numbness or weakness. He has no other complaints or injuries. Review of Systems Review of Systems Constitutional: Denies fever or chills [] Musculoskeletal: Denies back pain or joint pain [] Integument: Denies rash or skin lesions [] Neurologic: Denies focal weakness or sensory changes [] Allergies Allergies Allergies Coded Allergies Type Severity Reaction Last Updated Verified No Known Drug Allergies 04/07/16 No Physical Exam Physical Exam PHYSICAL EXAM: HEENT: Atruamatic NECK: Supple, normal ROM, non-tender. CARDIAC: Regular Rate and Rhythm LUNGS: Clear Bilaterally EXTREMITIES: There is a 1 cm superficial laceration on the dorsal aspect of the middle phalanx of the left index finger. Bleeding is controlled. Distal capillary refill and sensation is normal. Flexion and extension, tested against resistance, and the digit is normal. The remainder the extremities are atraumatic. EKG EKG [] Radiology/Procedures Radiology/Procedures [] Course & Med Decision Making Course & Med Decision Making The patient's laceration does not warrant a repair. A dressing/Band-Aid is adequate given the superficial nature of the wound. I discussed wound care, the need for follow-up, and return precautions. Dragon Disclaimer Dragon Disclaimer This electronic medical record was generated, in whole or in part, using a voice recognition dictation system. Departure Departure: Impression: Primary Impression: Finger laceration Disposition: 01 HOME, SELF-CARE Condition: STABLE Patient Instructions: Laceration Care, Adult, Wound Care, [id number] Additional Instructions: Keep wound clean and dry. Apply topical antibiotic ointment to the wound, and keep a sterile dressing in place. VIDHI NORWOOD MD Mar 07, 2019 11:47
[2019-03-07 12:00] VITALS: BP 123/63
== END 2019-03-07 12:04 | disposition home or self-care (01) ==
LOC: ER 11:23
DX: S61.211A Laceration without foreign body of left index finger without damage to nail, initial encounter (principal); W26.0XXA Contact with knife, initial encounter; Y93.89 Activity, other specified; Y92.89 Other specified places as the place of occurrence of the external cause; Y99.8 Other external cause status
CPT/HCPCS: 90471; 90715; 99283-25

== ENCOUNTER 2020-07-05 15:38 | Emergency (ER) | payer OTHER ==
[~2020-07-05] VITALS: Ht 182.9 cm; Wt 69.0 kg
[~2020-07-05 15:38] MED LIST changes: -ASPI-612 PO; +ASPI-889 PO; -NEOMY/BACITR/POLYMYXIN OINT PACKET. TP ONE
--- NOTE | 2020-07-05 16:37 | RAD ---
INDICATION: Testicular pain. COMPARISON: None. TECHNIQUE: Grayscale, color and spectral doppler ultrasound images obtained of the scrotum. FINDINGS: Right Testicle: 42 x 24 x 21 mm. Vascular flow is identified. Left Testicle: 42 x 27 x 17 mm. Vascular flow is identified. IMPRESSION: * Vascular flow is identified to the bilateral testicles. Electronically signed by: Nolan Diggs MD (07/05/2020 4:34 PM) [id number]
--- NOTE | 2020-07-05 17:03 | RAD ---
CT abdomen pelvis without contrast dated 07/05/2020. No comparison available. Clinical data indication: Groin pain. TECHNIQUE: Contiguous axial imaging the M pelvis performed without the administration of IV or oral contrast. One or more of the following individualized dose reduction techniques were utilized for this examinat ion: 1. Automated exposure control 2. Adjustment of the mA and/or kV according to patient size 3. Use of iterative reconstruction technique. FINDINGS: Limited images of the lung bases are clear. Heart size within normal limits. No pleural or pericardia l effusion. Solid abdominal viscera not well evaluated in the absence of contrast material. No apparent attenuati on abnormality of the liver or spleen. Pancreas, adrenal glands and gallbladder are unremarkable. Kidneys are symmetric in size and attenuation. No calcific renal or ureteral stone. No hydronephrosis . Unopacified GI tract normal in caliber and contour. No focal bowel wall thickening. No inflammatory s tranding in the mesentery. The appendix is normal in caliber. No ascites or lymphadenopathy. Abdomina l aorta normal in caliber. Images of pelvis show nondistended urinary bladder. No calcific bladder stone. Prostate gland normal in size. No free fluid or lymphadenopathy. Bone windows show no acute findings. IMPRESSION: 1. No acute abnormality of abdomen or pelvis. No renal stone or hydronephrosis. Electronically signed by: Sin Bailey MD (07/05/2020 5:00 PM) [id number]
[2020-07-05] MEDS ORDERED: KETOROLAC 60 MG/2 ML VIAL. IM ONE (17:15)
--- NOTE | 2020-07-05 17:43 | PHYS DOC ---
Past History Past Medical History: Heart Disease, Other Additional Past Medical Histor: myocarditis, anxiety, orthostasis Past Surgical History: Other Additional Past Surgical Histo: CARDIAC ABLATION, DEFIB IMPLANT Alcohol Use: None Drug Use: None Adult General Chief Complaint Chief Complaint: TESTICULAR PAIN OR INJURY [facility] Patient is a 30-year-old male who presents to the emergency room complaining of testicular and abdominal pain that started yesterday. Patient states that he was working yesterday and was not doing anything significantly strenuous but noticed after work that he had a left testicular pain that radiated into the left side of his abdomen. The pain was constant throughout the night however he was able to sleep. When he woke up the pain was better and he thought that may be he had just pulled something. When he got up and started moving around after about an hour the pain got much worse. He states that the pain brought him to his knees and feels like a sharp shooting pain. He states that the pain has moved into his right testicle and shoots into his left abdomen. He denies any urinary symptoms. He has not had any nausea, vomiting, diarrhea, constipation. He has never had anything like this before. He does have a history of a hernia on that side but states that it was fixed 10 years ago. Review of Systems Review of Systems Complete ROS is negative unless otherwise documented in HPI Current Medications Current Medications Current Medications Medications (Trade) Dose Ordered Sig/Rick Start Time Stop Time Status Last Admin Dose Admin Ketorolac Tromethamine (Toradol Im) 60 mg 1X ONCE 07/05/20 17:15 07/05/20 17:16 DC 07/05/20 17:26 60 MG Allergies Allergies Allergies Coded Allergies Type Severity Reaction Last Updated Verified No Known Drug Allergies 04/07/16 No Physical Exam Physical Exam General: Awake, alert, NAD. Well Nourished, well hydrated. Cooperative HEENT: Atraumatic, EOMI, PERRL, airway patent, moist oral mucosa Neck: Supple, trachea midline Respiratory: CTA bilaterally, normal effort, no wheezing/crackles CV: RRR, no murmur, cap refill <2 GI: Soft, nondistended, left lower abdominal tenderness, no masses : penis WNL, testicles: no swelling, no redness, no significant tenderness MSK: No obvious deformities Skin: Warm, dry, intact Neuro: A&O x3, speech NL, sensory and motor grossly intact, no focal deficits Psych: Normal affect, normal mood, not suicidal or homicidal Current Patient Data Vital Signs Vital Signs Date Time Temp Pulse Resp B/P (MAP) Pulse Ox O2 Delivery O2 Flow Rate FiO2 07/05/20 17:30 66 18 117/70 (86) 97 Room Air 07/05/20 15:40 98.1 EKG EKG [] Radiology/Procedures Radiology/Procedures [] Heart Score Risk Factors: Risk Factors: DM, Current or recent (<one month) smoker, HTN, HLP, family history of CAD, obesity. Risk Scores: Risk Factors: DM, Current or recent (<one month) smoker, HTN, HLP, family history of CAD, obesity. Course & Med Decision Making Course & Med Decision Making Pertinent Labs and Imaging studies reviewed. (See chart for details) Patient is a 30-year-old male who presents to the emergency room complaining of testicular pain that radiates into his abdomen. Initially a testicular ultrasound was done and was negative. Given his significant abdominal pain a CT abdomen pelvis without contrast was ordered to evaluate for a kidney stone. This was negative. UA was ordered to evaluate for pyelonephritis. Dragon Disclaimer Dragon Disclaimer This electronic medical record was generated, in whole or in part, using a voice recognition dictation system. Departure Departure: Impression: Primary Impression: Abdominal pain Disposition: 01 DC HOME SELF CARE/HOMELESS Condition: STABLE Referrals: PCP,UNKNOWN (PCP) ZANDER SALES MD Jul 05, 2020 17:43
[2020-07-05 18:10] LABS: BILIRUBIN,URINE NEG (NEG); CLARITY,URINE CLEAR; COLOR,URINE YELLOW; GLUCOSE,URINE NEG (NEG)
[2020-07-05 18:11] LABS: BACTERIA,URINE 0 /HPF (0-FEW); NITRITE,URINE NEG (NEG); RBC,URINE 0 /HPF (0-2); SPERM,URINE PRESENT /HPF; SQUAMOUS EPITHELIAL CELL,UR OCC /LPF; UROBILINOGEN,URINE 0.2 mg/dL (0.2 mg/dL); WBC,URINE OCC /HPF (0-4)
[2020-07-05 18:15] VITALS: BP 114/68
== END 2020-07-05 18:30 | disposition home or self-care (01) ==
LOC: ER 15:38
DX: R10.32 Left lower quadrant pain (principal); N50.812 Left testicular pain
CPT/HCPCS: 74176; 76870; 81001; 96372; 99285; J1885

== ENCOUNTER 2021-11-04 02:18 | Emergency (ER) | payer OTHER ==
[~2021-11-04] VITALS: Ht 182.9 cm; Wt 69.0 kg
[2021-11-04 02:34] VITALS: BP 134/67
--- NOTE | 2021-11-04 02:44 | PHYS DOC ---
Past History Past Medical History: Heart Disease, Other Additional Past Medical Histor: myocarditis, anxiety, orthostasis,AOBD Past Surgical History: Other Additional Past Surgical Histo: CARDIAC ABLATION, DEFIB IMPLANT Alcohol Use: None Drug Use: None Adult General Chief Complaint Chief Complaint: HEAD INJURY/TRAUMA HPI HPI Patient is a 31-year-old male that presents after having some boxes fall on his head at work at [employer] just before coming in, states that he did not weigh very much but he did fall to the ground. Denies any loss of consciousness, changes in vision, neck pain, chest pain or shortness of breath, abdominal pain, nausea, vomiting. Denies any numbness/weakness/tingling. Denies any trouble sitting, standing or walking. States he does have a mild generalized headache, 3 out of 10 but did not take any medications. Review of Systems Review of Systems Review of systems otherwise unremarkable except noted in HPI Allergies Allergies Allergies Coded Allergies Type Severity Reaction Last Updated Verified No Known Drug Allergies 11/04/21 No Physical Exam Physical Exam Constitutional: Well developed, well nourished, no acute distress, non-toxic appearance. [] HENT: Normocephalic, atraumatic, bilateral external ears normal, oropharynx moist, no oral exudates, nose normal. [] Eyes: PERRLA, EOMI, conjunctiva normal, no discharge. [] Neck: Normal range of motion, no tenderness, supple, no stridor. [] Cardiovascular:Heart rate regular rhythm, no murmur [] Lungs & Thorax: Bilateral breath sounds clear to auscultation [] Abdomen: Bowel sounds normal, soft, no tenderness, no masses, no pulsatile masses. [] Skin: Warm, dry, no erythema, no rash. [] Back: No tenderness, no CVA tenderness. [] Extremities: No tenderness, no cyanosis, no clubbing, ROM intact, no edema. [] Neurologic: Alert and oriented X 3, normal motor function, normal sensory function, able to sit, stand and walk without issue, no focal deficits noted. [] Psychologic: Affect normal, judgement normal, mood normal. [] Current Patient Data Vital Signs Vital Signs Date Time Temp Pulse Resp B/P (MAP) Pulse Ox O2 Delivery O2 Flow Rate FiO2 11/04/21 02:34 97.9 70 18 134/67 (89) 100 EKG EKG [] Radiology/Procedures Radiology/Procedures [] Heart Score C/O Chest Pain: No Risk Factors: Risk Factors: DM, Current or recent (<one month) smoker, HTN, HLP, family history of CAD, obesity. Risk Scores: Risk Factors: DM, Current or recent (<one month) smoker, HTN, HLP, family history of CAD, obesity. Course & Med Decision Making Course & Med Decision Making Patient is a 31-year-old male who presents after having some boxes followed his head at work Vital signs nonconcerning. Physical exam noted above. Given medicines for symptom control. Discussed symptom management at home. Given concussion precautions. Advised to follow-up in the morning with primary care physician. Advised on activity over the next few days. Gave strict return precautions to the ED. Patient grateful, verbalized understanding agree with plan of discharge [] Dragon Disclaimer Dragon Disclaimer This electronic medical record was generated, in whole or in part, using a voice recognition dictation system. Departure Departure: Impression: Primary Impression: Concussion Disposition: HOME / SELF CARE / HOMELESS Condition: STABLE Referrals: PCP,UNKNOWN (PCP) CELI PEREZ MD Patient Instructions: Concussion and Brain Injury Additional Instructions: Thank you for coming into the emergency department tonight and allowing us to take care of you. Please read the attached information carefully to go over things we discussed. You can use Tylenol, ibuprofen, Benadryl and ice packs on the back your neck as we discussed at home. It is very important that you follow-up with your primary care physician in the morning to update on your ED visit and set up a follow-up as soon as you can. You were given a work note as well for light duty at work until cleared by your primary care physician or you feel okay to go back to normal duty. ALEXSANDER CHINCHILLA MD November 04, 2021 02:44
[2021-11-04] MEDS: oxyCODONE/APAP 5/325 1 TAB TABLET PO ONE (03:18)
[2021-11-04] MEDS: IBUPROFEN 600 MG TABLET. PO ONE (03:18)
== END 2021-11-04 03:27 | disposition home or self-care (01) ==
LOC: ER 02:18
DX: S06.0X9A Concussion with loss of consciousness of unspecified duration, initial encounter (principal); W20.8XXA Other cause of strike by thrown, projected or falling object, initial encounter; Y93.89 Activity, other specified; Y92.89 Other specified places as the place of occurrence of the external cause; Y99.8 Other external cause status
CPT/HCPCS: 99283